=== PATIENT | female | born 1950 | race Caucasian/White ===

== ENCOUNTER 2017-04-24 09:30 | Emergency (ER) | payer MEDICARE, OTHER ==
[~2017-04-24] VITALS: Ht 154.9 cm; Wt 86.2 kg
[2017-04-24 09:30] VITALS: BP 164/85
== END 2017-04-24 10:16 | disposition home or self-care (01) ==
LOC: ER 09:32
DX: B02.9 Zoster without complications (principal); I10 Essential (primary) hypertension; E11.9 Type 2 diabetes mellitus without complications; E89.0 Postprocedural hypothyroidism; C73 Malignant neoplasm of thyroid gland; Z88.0 Allergy status to penicillin; Z88.8 Allergy status to other drugs, medicaments and biological substances; Z88.2 Allergy status to sulfonamides
CPT/HCPCS: 99283; A4606; Z7610